=== PATIENT | female | born 1965 | race African-American/Black ===

== ENCOUNTER 2023-08-02 08:00 | Emergency (ER) | payer BC ==
[~2023-08-02] VITALS: Ht 162.6 cm; Wt 98.4 kg
[2023-08-02] MEDS ORDERED: IBUPROFEN 600 MG TAB ONE (08:12)
[2023-08-02] MEDS ORDERED: ACETAMINOPHEN 325 MG TAB ONE (08:12)
[2023-08-02] MEDS ORDERED: IBUPROFEN 600 MG TAB PO STA (08:13)
[2023-08-02 08:15] VITALS: O2SAT 98
[2023-08-02] MEDS ORDERED: ACETAMINOPHEN 325 MG TAB PO ONE (08:15)
[2023-08-02] MEDS ORDERED: CYCLOBENZAPRINE HCL 10 MG TAB ONE (08:26)
[2023-08-02] MEDS ORDERED: CYCLOBENZAPRINE HCL 10 MG TAB PO ONE (08:30)
[2023-08-02] MEDS ORDERED: METHOCARBAMOL500 MG PO (09:12)
[2023-08-02] MEDS ORDERED: NAPROSYN500 MG PO (09:12)
== END 2023-08-02 09:41 | disposition home or self-care (01) ==
LOC: FSED 08:07
DX: S16.1XXA Strain of muscle, fascia and tendon at neck level, initial encounter (principal); M62.838 Other muscle spasm; X50.1XXA Overexertion from prolonged static or awkward postures, initial encounter; Y92.29 Other specified public building as the place of occurrence of the external cause; I10 Essential (primary) hypertension
CPT/HCPCS: 72125; 99283

== ENCOUNTER 2024-02-29 19:24 | Emergency (ER) | payer BC ==
[~2024-02-29] VITALS: Ht 160 cm; Wt 98.4 kg
[~2024-02-29 19:24] MED LIST: AZITHROMYCIN250 MG PO; BENICAR HCT 201 EACH; DIPHENHYDRAMINE25 MG PO; IBUPROFEN200 MG PO; METHOCARBAMOL500 MG PO; METOPROLOL SUCC25 MG PO; NAPROSYN500 MG PO; VENTOLIN HFA18 GM INH
[2024-02-29 19:32] VITALS: PULSE 104; RESP 18; TEMP 97.9; O2SAT 96
[2024-02-29] MEDS ORDERED: DIPHENHYDRAMINE25 M2 PO (20:01)
== END 2024-02-29 20:10 | disposition home or self-care (01) ==
LOC: FSED 19:28
DX: R05.9 Cough, unspecified (principal); J06.9 Acute upper respiratory infection, unspecified; R53.81 Other malaise; I10 Essential (primary) hypertension; Z11.52 Encounter for screening for COVID-19
CPT/HCPCS: 0223U; 83518; 87400; 99283

== ENCOUNTER 2024-11-12 11:34 | Emergency (ER) | payer BC ==
[~2024-11-12] VITALS: Ht 162.6 cm; Wt 97.6 kg
[~2024-11-12 11:34] MED LIST changes: +DIPHENHYDRAMINE25 M2 PO
[2024-11-12 11:46] VITALS: TEMP 98.7
[2024-11-12 15:54] VITALS: PULSE 84; RESP 12; O2SAT 97
== END 2024-11-12 16:25 | disposition home or self-care (01) ==
LOC: FSED 12:12
DX: R06.02 Shortness of breath (principal); R07.9 Chest pain, unspecified; M79.602 Pain in left arm; M79.601 Pain in right arm; R42 Dizziness and giddiness
CPT/HCPCS: 71046; 80053; 84484; 85025; 93005; 99284

== ENCOUNTER 2024-11-14 19:36 | Emergency (ER) | payer BC ==
[~2024-11-14] VITALS: Ht 162.6 cm; Wt 98.4 kg
[2024-11-14 19:50] VITALS: PULSE 82; RESP 18
[2024-11-14 19:51] VITALS: TEMP 97.8
[2024-11-14] MEDS: TRAMADOL HCL 50 MG TAB PO ONE (20:56)
[2024-11-14] MEDS ORDERED: AMOX TR-K CLV1 EAC2 PO (22:14)
[2024-11-14] MEDS ORDERED: CYCLOBENZAPRINE5 MG PO (22:15)
[2024-11-14 22:38] VITALS: BP 150/79; O2SAT 99
== END 2024-11-14 22:40 | disposition home or self-care (01) ==
LOC: FSED 19:48
DX: M54.50 Low back pain, unspecified (principal); K57.32 Diverticulitis of large intestine without perforation or abscess without bleeding; R16.0 Hepatomegaly, not elsewhere classified; R59.1 Generalized enlarged lymph nodes; I10 Essential (primary) hypertension
CPT/HCPCS: 99284

== ENCOUNTER 2025-01-21 13:31 | Emergency (ER) | payer BC ==
[~2025-01-21] VITALS: Ht 162.6 cm; Wt 99.8 kg
[~2025-01-21 13:31] MED LIST changes: +AMOX TR-K CLV1 EAC2 PO; +CYCLOBENZAPRINE5 MG PO
[2025-01-21 13:35] VITALS: PULSE 87; RESP 16; TEMP 97.8; O2SAT 98
[2025-01-21] MEDS ORDERED: NAPROXEN500 MG PO (13:51)
== END 2025-01-21 13:55 | disposition home or self-care (01) ==
LOC: FSED 13:36
DX: M25.511 Pain in right shoulder (principal); M54.12 Radiculopathy, cervical region; I10 Essential (primary) hypertension; Z91.148 Patient's other noncompliance with medication regimen for other reason
CPT/HCPCS: 99283

== ENCOUNTER 2025-03-19 09:52 | Emergency (ER) | payer BC ==
[~2025-03-19] VITALS: Ht 162.6 cm; Wt 97.7 kg
[~2025-03-19 09:52] MED LIST changes: +NAPROXEN500 MG PO
[2025-03-19 10:50] VITALS: PULSE 87; RESP 18; TEMP 97.8; O2SAT 97
== END 2025-03-19 10:50 | disposition home or self-care (01) ==
LOC: FSED 09:57
DX: R51.9 Headache, unspecified (principal); B34.9 Viral infection, unspecified; R05.9 Cough, unspecified; R09.89 Other specified symptoms and signs involving the circulatory and respiratory systems; I10 Essential (primary) hypertension; Z91.148 Patient's other noncompliance with medication regimen for other reason; Z11.52 Encounter for screening for COVID-19
CPT/HCPCS: 0223U; 83518; 87400; 99283